=== PATIENT | female | born 1935 | race Caucasian/White ===

== ENCOUNTER 2016-10-13 12:00 | Emergency (ER) | payer OTHER ==
[2016-10-13 12:07] VITALS: TEMP 98.1; BMI 24.0
--- NOTE | 2016-10-13 13:36 | PDOC ---
History of Present Illness - History of Present Illness Initial Comments: 10/13/16 17:12 Patient is a 80 year old female with significant medical hx of COPD, HTN, dementia, and anemia who is presenting to the ED with four weeks of shortness of breath, cough, body aches, and nasal congestion. The patient is complaining of productive cough with yellowish sputum production. She denies any fever or chills. Today the patient went to her PCP for progression of her symptoms and she was referred to the ED for further evaluation. PCP: Mika Spencer MD <Kelsea Hinds - Last Filed: 10/13/16 17:12> <Vincenzo Perdomo - Last Filed: 10/13/16 18:25> - General Chief Complaint: Shortness of Breath Stated Complaint: SOB Time Seen by Provider: 10/13/16 13:14 Past History <Kelsea Hinds - Last Filed: 10/13/16 17:12> - Past Medical History Anemia: Yes Asthma: No Cancer: No Cardiac Disorders: No CVA: No COPD: Yes CHF: No Dementia: No Diabetes: No GI Disorders: No Disorders: No HTN: Yes Hypercholesterolemia: No Liver Disease: No Seizures: No Thyroid Disease: No - Immunization History Immunization Up to Date: Yes - Psycho/Social/Smoking Cessation Hx Anxiety: No Suicidal Ideation: No Smoking Status: No Smoking History: Never smoked Have you smoked in the past 12 months: No Number of Cigarettes Smoked Daily: 0 Information on smoking cessation initiated: No Hx Alcohol Use: No Drug/Substance Use Hx: No Substance Use Type: None Hx Substance Use Treatment: No <Vincenzo Perdomo - Last Filed: 10/13/16 18:25> - Past Medical History Allergies/Adverse Reactions: Allergies Allergy/AdvReac Type Severity Reaction Status Date / Time No Known Allergies Allergy Verified 10/13/16 12:08 Home Medications: Ambulatory Orders Albuterol Sulfate 0.5% [Ventolin 0.5% Nebulizing Soln. -] 1 neb IH QID PRN #30 vial 10/13/16 Azithromycin [Zithromax Tri-Satinder (3 DAYS) -] 500 mg PO DAILY #3 tablet 10/13/16 Prednisone [Deltasone -] 40 mg PO DAILY #8 tablet 10/13/16 Respiratory Specific PMHX - Complaint Specific PMHX Angina: No <Vincenzo Perdomo - Last Filed: 10/13/16 18:25> Review of Systems - Review of Systems Comments:: 10/13/16 17:13 CONSTITUTIONAL: No reported: Fever, Chills, Diaphoresis, Generalized Weakness, Malaise, Loss of Appetite HEENT: Reported: Nasal Congestion No reported: Rhinorrhea, Throat Pain, Throat Swelling, Difficulty Swallowing, Mouth Swelling, Ear Pain, Eye Pain, Visual Changes CARDIOVASCULAR: No reported: Chest Pain, Syncope, Palpitations, Irregular Heart Rate, Lightheadedness, Peripheral Edema RESPIRATORY: Reported: Productive Cough, Shortness of Breath No reported: SOB with Exertion, Orthopnea, Wheezing, Stridor, Hemoptysis GASTROINTESTINAL: No reported: Abdominal pain, Abdominal Distension, Nausea, Vomiting, Diarrhea, Constipation, Melena, Hematochezia GENITOURINARY: No reported: Dysuria, Frequency, Urgency, Hesitancy, Flank Pain, Genital Pain MUSCULOSKELETAL: Reported: Body Aches No reported: Arthralgia, Joint Swelling, Back pain, Neck Pain SKIN: No reported: Rash, Itching, Pallor HEMEATOLOGIC/IMMUNOLOGIC: No reported: Easy Bleeding, Easy Bruising, Lymphadenopathy, Frequent infections ENDOCRINE: No reported: Unexplained Weight Gain, Unexplained Weight Loss, Heat Intolerance , Cold Intolerance NEUROLOGIC: No reported: Headache, Focal Weakness, Paresthesias, Vertigo, Lightheadedness, Unsteady Gait, Seizure, Mental Status Changes, Incontinence PSYCHIATRIC: No reported: Anxiety, Depression <Kelsea Hinds - Last Filed: 10/13/16 17:12> *Physical Exam - Vital Signs Last Vital Signs Temp Pulse Resp BP Pulse Ox 98.1 F 60 18 148/86 96 10/13/16 12:06 10/13/16 12:06 10/13/16 12:06 10/13/16 12:06 10/13/16 12:06 - Physical Exam Comments: 10/13/16 17:13 GENERAL: The patient is awake, alert, and fully oriented, Nontoxic - in no acute distress. HEAD: Normocephalic, atraumatic. EYES: extraocular movements intact, sclera anicteric, conjunctiva clear. ENT: Normal voice, Moist mucous membranes. NECK: Normal range of motion, supple LUNGS: Crackles in the left lung. No wheezes, no rhonchi, no rales. HEART: Regular rate and rhythm, without murmur, rub or gallop. ABDOMEN: Soft, nontender, normoactive bowel sounds. No guarding, no rebound.No CVA tenderness EXTREMITIES: Normal range of motion, no edema. No clubbing or cyanosis. No cords , erythema, or tenderness. NEUROLOGICAL: No facial assymetry, Normal speech, PSYCH: Normal mood, normal affect. SKIN: Warm, Dry, normal turgor <Lizet,Kelsea - Last Filed: 10/13/16 17:12> - Vital Signs Last Vital Signs Temp Pulse Resp BP Pulse Ox 98.1 F 60 18 148/86 96 10/13/16 12:06 10/13/16 12:06 10/13/16 12:06 10/13/16 12:06 10/13/16 12:06 <ConorWojciechVincenzo - Last Filed: 10/13/16 18:25> ED Treatment Course - LABORATORY CBC & Chemistry Diagram: 10/13/16 13:55 10/13/16 13:55 - ADDITIONAL ORDERS Additional order review: Laboratory Results 10/13/16 10/13/16 14:48 13:55 VBG pH 7.30 L POC VBG pCO2 60.9 H* POC VBG pO2 30.4 Sodium 143 Potassium 4.1 Chloride 103 Carbon Dioxide 31 Anion Gap 9 BUN 19 H D Creatinine 0.9 D Creat Clearance w eGFR > 60 Random Glucose 128 H D Calcium 9.5 Total Bilirubin 0.2 AST 22 ALT 26 Alkaline Phosphatase 78 Creatine Kinase 105 Troponin I < 0.02 Total Protein 7.9 Albumin 3.7 10/13/16 13:55 RBC 4.39 MCV 86.7 MCHC 32.3 RDW 14.6 MPV 8.7 D Neutrophils % 68.4 Lymphocytes % 23.6 Monocytes % 6.0 Eosinophils % 1.4 Basophils % 0.6 - RADIOLOGY Radiograph Interpretation: 10/13/16 15:37 Chest X-Ray Impression: Borderline cardiomegaly. Bilateral increased lung markins and minimal atelectatic changes in the left lung base again seen. Minimal blunting of the costophrenic angles consistent with pleural thickening versus effusion. Reported By: Whitney Cash MD - Medications Given in the ED: ED Medications Discontinued Medications Generic Name Dose Route Start Last Admin Trade Name Freq PRN Reason Stop Dose Admin Acetaminophen 650 mg 10/13/16 13:46 10/13/16 13:54 Tylenol - PO 10/13/16 13:47 650 mg ONCE ONE Administration <Kelsea Hinds - Last Filed: 10/13/16 17:12> - LABORATORY CBC & Chemistry Diagram: 10/13/16 13:55 10/13/16 13:55 <Vincenzo Perdomo - Last Filed: 10/13/16 18:25> Medical Decision Making - Medical Decision Making 10/13/16 13:48 81y F hx of COPD, anemia, htn, sent to the ED for evaluation of worsening cough , sob - on exam pt with crackles on the L lung, otherwise in no acute distress. Suspect possible pna - saturation borderline at 95% will obtain cxr, labs, cultures will give abx no recent hospital admissions Case discussed in detail with admitting physician including history, physical exam and ancillary studies. Admitting physician has assumed care for the patient, will follow all pending diagnostics and will complete the evaluation and treatment. 10/13/16 17:11 labs reviewed no leukocytosis vbg shows mild hypercapnea pt currently in no distress states she feel simproved after a neb cxr shows no infiltrate pt was give abx for clinical pna will reassess the patient - will ambulate the pt if she feels well and is asypmtomatic, not hypoxic will d/c with pmd fu if hypxoic or sob will admit for copd and clnical pna 10/13/16 18:20 pt was ambulateda round the ED, saturation afterwads as 98% on RA, and pt was not tachypneic - states she feels well. will d/c the pt to fu with her PMD as outpatient on sunday. will treat her with alubterol, steroids, and zpack return precautions were discussed with the patient as well as her family and son who are bedside - the agree with our mangaement and plan if worse will return to the ED. I discussed the physical exam findings, ancillary test results and final diagnoses with the patient. I answered all of the patient's questions. The patient was satisfied with the care received and felt comfortable with the discharge plan and treatment plan. The patient will call their primary care physician within 24 hours to arrange follow-up and will return to the Emergency Department with any new, persistent or worsening symptoms. <Vincenzo Perdomo - Last Filed: 10/13/16 18:25> *DC/Admit/Observation/Transfer - Attestations Scribe Attestion: 10/13/16 17:14 Documentation prepared by Kelsea Hinds, acting as medical supervisor for Vincenzo Perdomo MD. <Kelsea Hinds - Last Filed: 10/13/16 17:12> - Discharge Dispostion Admit: No <Vincenzo Perdomo - Last Filed: 10/13/16 18:25> Diagnosis at time of Disposition: Obstructive chronic bronchitis with exacerbation - Discharge Dispostion Disposition: HOME Condition at time of disposition: Improved - Referrals Referrals: Mika Spencer MD [Primary Care Provider] - - Patient Instructions Printed Discharge Instructions: DI for Chronic Obstructive Pulmonary Disease, Atypical Pneumonia Additional Instructions: Vuelva al departamento de emergencia inmediatamente con CUALQUIER nuevo, persistente o empeorando los sntomas incluyendo cualquier fiebre, dificultad para respirar, cualquier pecho o cualquier otra preocupacin. [place] el albuterol segn sea necesario para la tos o falta de aire. [place] los antibiticos segn lo prescrito. Debe LLAMAR y seguir con torre mdico el lunes para azael evaluacin ms detallada de sarath sntomas. Los resultados fueron discutidos con usted. Por favor, aseg rese de que torre mdico revise los resultados de torre evaluacin de emergencia. Return to the emergency department immediately with ANY new, persistent or worsening symptoms including any fever, difficulty breathing, any chest or any other concerns. Take the albuterol as needed for cough or shortness of breath. Take the antibiotics as prescribed. You MUST call and follow up with your doctor on sunday for further evaluation of your symptoms. Results were discussed with you. Please make sure your doctor reviews the results of your emergency evaluation. Print Language: ICELANDIC
[2016-10-13] MEDS ORDERED: ACETAMINOPHEN 325 MG TABLET (FP) PO ONE (13:46)
[2016-10-13] MEDS ORDERED: ACETAMINOPHEN 325 MG TABLET (FP) ONE (13:55)
[2016-10-13 14:25] LABS: BASOPHIL 0.6 % (0-2.0); EOSINOPHIL 1.4 % (0-4.5); MCHC 32.3 g/dl (32.0-36.0); MEAN CELL VOLUME 86.7 fl (80-96); MEAN PLT VOLUME 8.7 fl (7.5-11.1); NEUTROPHILS 68.4 % (42.8-82.8); PLATELET COUNT 276 K/MM3 (134-434); RDW 14.6 % (11.6-15.6); WHITE BLOOD COUNT 8.5 K/mm3 (4.0-10.0)
[2016-10-13 15:00] LABS: VENOUS BLOOD GAS HCO3 29.2 meq/L (22-29); VENOUS PH 7.3 (7.31-7.41)
[2016-10-13 15:03] LABS: ALBUMIN 3.7 g/dl (3.4-5.0); ANION GAP 9 (8-16); BILIRUBIN,TOTAL 0.2 mg/dL (0.2-1.0); CALCIUM 9.5 mg/dL (8.5-10.1); CO2 31 mmol/L (21-32); CREATININE 0.9 mg/dL (0.55-1.02); GLUCOSE,RANDOM 128 mg/dL (74-106); SGOT/AST 22 U/L (15-37); SGPT/ALT 26 U/L (12-78); TOT PROT 7.9 g/dl (6.4-8.2)
[2016-10-13 15:06] LABS: ALK PHOS 78 U/L (45-117); TROPONIN I < 0.02 ng/ml (0.00-0.05)
[2016-10-13] MEDS ORDERED: methylPREDNISolone NA SUCC 125 MG/2 ML VIAL IVPB ONE (15:56)
[2016-10-13] MEDS ORDERED: ALBUTEROL SO4 2.5/IPRATROPIUM 0.5 INH SOL 3 ML VIAL.NEB. NEB ONE (15:56)
[2016-10-13] MEDS ORDERED: CEFTRIAXONE 1 GM in DEXTROSE 5%-WATER - 50 ML IVPB ONE (15:57)
[2016-10-13] MEDS ORDERED: AZITHROMYCIN IVPB 500 MG in DEXTROSE 5%-WATER - 250 ML IVPB ONE (15:57)
[2016-10-13] MEDS ORDERED: methylPREDNISolone NA SUCC 125 MG/2 ML VIAL ONE (16:07)
[2016-10-13] MEDS ORDERED: CEFTRIAXONE 50 ML ONE ×2 (16:07→16:08)
--- NOTE | 2016-10-13 16:13 | EKG ---
Test Reason : Blood Pressure : / mmHG Vent. Rate : 058 BPM Atrial Rate : 058 BPM P-R Int : 212 ms QRS Dur : 102 ms QT Int : 456 ms P-R-T Axes : 051 -40 -01 degrees QTc Int : 447 ms SINUS BRADYCARDIA WITH 1ST DEGREE A-V BLOCK POSSIBLE LEFT ATRIAL ENLARGEMENT LEFT ANTERIOR FASCICULAR BLOCK LEFT VENTRICULAR HYPERTROPHY ABNORMAL ECG Confirmed by MELECIO SERRANO MD ([id number]) on 10/13/2016 4:13:26 PM Referred By: Confirmed By:MELECIO SERRANO MD
[2016-10-13] MEDS ORDERED: AZITHROMYCIN IVPB 250 ML IVPB ONE (16:29)
[2016-10-13 18:31] VITALS: BP 113/60; PULSE 85
== END 2016-10-13 18:31 | disposition home or self-care (01) ==
LOC: JER 12:00
PROC: 3E03329 Introduction of Other Anti-infective into Peripheral Vein, Percutaneous Approach (ICD-10-PCS; principal; 2016-10-13)
PROC: 3E033GC Introduction of Other Therapeutic Substance into Peripheral Vein, Percutaneous Approach (ICD-10-PCS; 2016-10-13)
DX: J44.1 Chronic obstructive pulmonary disease with (acute) exacerbation (principal); I10 Essential (primary) hypertension
CPT/HCPCS: 36415; 71020-TC; 80053; 82550; 82803; 84484; 85025; 93005; 93010; 96365; 96368; 96375; 99282-25